=== PATIENT | male | born 2000 | race Caucasian/White ===

== ENCOUNTER 2019-05-01 13:21 | Emergency (ER) | payer OTHER ==
[~2019-05-01] VITALS: Ht 175.2 cm; Wt 122.7 kg
[2019-05-01] MEDS ORDERED: D-ME118S33 PO (13:50)
--- NOTE | 2019-05-01 13:50 | ED Cough/URI ---
General Chief Complaint: Cough/Cold/Flu Symptoms Stated Complaint: MIGRAINE;COUGH;CHEST CONGESTION Nursing Triage Note: COUGH CONGESTION SINCE TUESDAY. WITH BODY ACHES Sepsis Screen: No Definite Risk Source: patient Exam Limitations: no limitations History of Present Illness Date Seen by Provider: May 01, 2019 Time Seen by Provider: 13:49 Initial Comments To ER with cough, chest and nasal congestion, body aches, headache for 2 days. no fever. Timing/Duration: constant Severity/Quality: moderate Associated Symptoms: cough, muscle aches, nasal congestion, nasal drainage Allergies and Home Medications Allergies Coded Allergies: No Known Drug Allergies (Unverified , 05/01/19) Home Medications D-Methorphan Hb/P-Epd HCl/Bpm 118 Ml Syrup, 5 ML PO Q4H Prescribed by: MICHELA MCKEON on 05/01/19 1350 Patient Home Medication List Home Medication List Reviewed: Yes Review of Systems Review of Systems Constitutional: see HPI EENTM: see HPI Respiratory: see HPI, cough Cardiovascular: no symptoms reported Genitourinary: no symptoms reported Musculoskeletal: no symptoms reported Skin: no symptoms reported Psychiatric/Neurological: No Symptoms Reported Hematologic/Lymphatic: No Symptoms Reported Immunological/Allergic: no symptoms reported Past Lsmemjo-Ykofql-Zuedaz Hx Patient Social History Alcohol Use: Denies Use Recreational Drug Use: No Smoking Status: Current Everyday Smoker Recent Foreign Travel: No Contact w/Someone Who Travel: No Recent Infectious Disease Expo: No Past Medical History Surgeries: No Respiratory: No Cardiac: No Neurological: No Genitourinary: No Gastrointestinal: No Integumentary: No Physical Exam Vital Signs - First Documented 05/01/19 13:36 Temp 36.5 Pulse 97 Resp 18 B/P (MAP) 136/84 (101) Pulse Ox 98 Capillary Refill : Less Than 3 Seconds Height: '" Weight: lbs. oz. kg; 39.00 BMI Method: General Appearance: WD/WN, no apparent distress Eyes: Bilateral Eye Normal Inspection, Bilateral Eye PERRL, Bilateral Eye EOMI HEENT: PERRL/EOMI, normal ENT inspection, TMs normal, other (tonsillar enlargement without exudate) Neck: No lymphadenopathy (R), No lymphadenopathy (L) Respiratory: normal breath sounds, no respiratory distress, no accessory muscle use Cardiovascular: regular rate, rhythm, no murmur Gastrointestinal: normal bowel sounds, non tender, soft Neurologic/Psychiatric: alert, normal mood/affect, oriented x 3 Skin: normal color, warm/dry Progress/Results/Core Measures Suspected Sepsis Recent Fever Within 48 Hours: No Infection Criteria Present: None New/Unexplained Altered Menta: No Sepsis Screen: No Definite Risk SIRS Temperature: Pulse: 97 Respiratory Rate: 18 Blood Pressure 136 /84 Mean: 101 Results/Orders Micro Results Microbiology 05/01/19 Influenza Types A,B Antigen (ALICIA) - Final, Complete My Orders Orders - MICHELA MCKEON APRN Influenza A And B Antigens (05/01/19 13:39) Vital Signs/I&O 05/01/19 05/01/19 13:36 14:41 Temp 36.5 36.5 Pulse 97 97 Resp 18 18 B/P (MAP) 136/84 (101) 136/84 (101) Pulse Ox 98 98 Capillary Refill : Less Than 3 Seconds Blood Pressure Mean: 101 Departure Impression Primary Impression: Influenza-like symptoms Disposition: 01 HOME, SELF-CARE Condition: Stable Departure-Patient Inst. Decision time for Depature: 13:49 Referrals: NO,LOCAL PHYSICIAN (PCP) Primary Care Physician Patient Instructions: Viral Upper Respiratory Infection, Adult (DC) Add. Discharge Instructions: 1. Return to ER for any concerns 2. Medication as directed 3. All discharge instructions reviewed with patient and/or family. Voiced understanding. Scripts D-Methorphan Hb/P-Epd HCl/Bpm (Bromfed Dm Cough Syrup) 118 Ml Syrup 5 ML PO Q4H for 7 Days, #120 ML Prov: MICHELA MCKEON APRN 05/01/19 MICHELA MCKEON APRN May 01, 2019 13:50
[2019-05-01 14:41] VITALS: BP 136/84
== END 2019-05-01 14:41 | disposition home or self-care (01) ==
LOC: ER 13:23
DX: R09.89 Other specified symptoms and signs involving the circulatory and respiratory systems (principal); F17.200 Nicotine dependence, unspecified, uncomplicated
CPT/HCPCS: 87804

== ENCOUNTER 2019-06-11 12:36 | Emergency (ER) | payer OTHER ==
[~2019-06-11] VITALS: Ht 175 cm; Wt 127.8 kg
[~2019-06-11 12:36] MED LIST: D-ME118S33 PO
[2019-06-11 12:42] VITALS: BP 128/87
[2019-06-11] MEDS ORDERED: D-ME118S33 PO (12:47)
[2019-06-11] MEDS ORDERED: PRD20T PO (12:47)
--- NOTE | 2019-06-11 12:48 | ED Cough/URI ---
General Chief Complaint: Cough/Cold/Flu Symptoms Stated Complaint: COUGH;ABD PAIN;SNEEZING;PAIN WHILE BREATHING Nursing Triage Note: COUGH, HEADACHE, PAIN IN CHEST WITH COUGH THAT STARTED ON TUESDAY. Sepsis Screen: No Definite Risk Source: patient Exam Limitations: no limitations History of Present Illness Date Seen by Provider: Jun 11, 2019 Time Seen by Provider: 12:45 Initial Comments To ER with cough, pain with breathing, sneezing, headache cough is productive. Symptoms been present for 4-5 days. No travel in the past 3 weeks. No fevers at any time. Timing/Duration: constant Severity/Quality: moderate Associated Symptoms: cough, nasal congestion, nasal drainage Allergies and Home Medications Allergies Coded Allergies: No Known Drug Allergies (Unverified , 05/01/19) Home Medications D-Methorphan Hb/P-Epd HCl/Bpm 118 Ml Syrup, 5 ML PO Q4H PRN for COUGH Prescribed by: MICHELA MCKEON on 06/11/19 1248 Prednisone 20 Mg Tab, 40 MG PO DAILY Prescribed by: MICHELA MCKEON on 06/11/19 1247 Patient Home Medication List Home Medication List Reviewed: Yes Review of Systems Review of Systems Constitutional: see HPI; No chills EENTM: see HPI, nose congestion Respiratory: see HPI, cough Genitourinary: no symptoms reported Musculoskeletal: no symptoms reported Skin: no symptoms reported Psychiatric/Neurological: No Symptoms Reported Hematologic/Lymphatic: No Symptoms Reported Past Lwixizn-Kebrpj-Esilwa Hx Patient Social History Recent Foreign Travel: No Contact w/Someone Who Travel: No Recent Infectious Disease Expo: No Past Medical History Surgeries: No Respiratory: No Cardiac: No Neurological: No Genitourinary: No Gastrointestinal: No Integumentary: No Physical Exam Vital Signs - First Documented 06/11/19 12:42 Temp 37.2 Pulse 113 Resp 16 B/P (MAP) 128/87 (101) Pulse Ox 100 O2 Delivery Room Air Capillary Refill : Less Than 3 Seconds Height: '" Weight: lbs. oz. kg; 41.00 BMI Method: General Appearance: WD/WN, no apparent distress Eyes: Bilateral Eye Normal Inspection, Bilateral Eye PERRL, Bilateral Eye EOMI HEENT: PERRL/EOMI, normal ENT inspection, other (3+ tonsils without exudate) Neck: non-tender, full range of motion Respiratory: no respiratory distress, no accessory muscle use Cardiovascular: regular rate, rhythm, no murmur Gastrointestinal: normal bowel sounds, soft Neurologic/Psychiatric: alert, normal mood/affect, oriented x 3 Skin: normal color, warm/dry Progress/Results/Core Measures Suspected Sepsis Recent Fever Within 48 Hours: No Infection Criteria Present: Suspected New Infection New/Unexplained Altered Menta: No Sepsis Screen: No Definite Risk SIRS Temperature: Pulse: 113 Respiratory Rate: 16 Blood Pressure 128 /87 Mean: 101 Results/Orders My Orders Orders - MICHELA MCKEON APRN Chest Pa/Lat (2 View) (06/11/19 12:43) Vital Signs/I&O 06/11/19 12:42 Temp 37.2 Pulse 113 Resp 16 B/P (MAP) 128/87 (101) Pulse Ox 100 O2 Delivery Room Air Capillary Refill : Less Than 3 Seconds Blood Pressure Mean: 101 Departure Impression Primary Impression: Tonsillar hypertrophy Additional Impression: Bronchitis Disposition: 01 HOME, SELF-CARE Condition: Stable Departure-Patient Inst. Decision time for Depature: 12:46 Referrals: NO,LOCAL PHYSICIAN (PCP) Primary Care Physician Patient Instructions: Acute Bronchitis, Adult (DC) Add. Discharge Instructions: 1. Medication as directed 2. Return to ER for any concerns 3. Follow-up with your doctor this week for recheck. All discharge instructions reviewed with patient and/or family. Voiced understanding. Scripts Prednisone (Prednisone) 20 Mg Tab 40 MG PO DAILY, #6 TAB 0 Refills Prov: MICHELA MCKEON APRN 06/11/19 D-Methorphan Hb/P-Epd HCl/Bpm (Bromfed Dm Cough Syrup) 118 Ml Syrup 5 ML PO Q4H PRN for COUGH for 7 Days, #120 ML Prov: MICHELA MCKEON APRN 06/11/19 Work/School Note: Work Release Form Date Seen in the Emergency Department: Jun 11, 2019 Return to Work: Jun 14, 2019 MICHELA MCKEON APRN Jun 11, 2019 12:48
--- NOTE | 2019-06-11 13:07 | Diagnostic Imaging Report ---
INDICATION: Cough with chest pain. PA and lateral chest obtained at 1:05 p.m. Heart and mediastinal silhouette are normal in appearance. The lungs are clear. There is no pneumothorax or pleural fluid. IMPRESSION: Negative chest. Dictated by: Dictated on workstation # [id number]
--- NOTE | 2019-06-11 13:13 | NUR ---
MICHELA IN TALKING TO PT AT THIS TIME.
== END 2019-06-11 13:14 | disposition home or self-care (01) ==
LOC: EDUNIT# 12:36 → ER 12:38
DX: J35.1 Hypertrophy of tonsils (principal); J40 Bronchitis, not specified as acute or chronic
CPT/HCPCS: 71046

== ENCOUNTER 2019-07-02 17:36 | Emergency (ER) | payer OTHER ==
[~2019-07-02] VITALS: Ht 175.3 cm; Wt 108.9 kg
[~2019-07-02 17:36] MED LIST changes: +PRD20T PO
[2019-07-02] MEDS ORDERED: LACTATED RINGERS 1,000 ML IV ONE (17:43)
[2019-07-02 18:40] LABS: BASOPHILS # (AUTO) 0.1 10^3/uL (0.0-0.1); BASOPHILS % (AUTO) 1 % (0-10); EOSINOPHILS # (AUTO) 0.8 10^3/uL (0.0-0.3); EOSINOPHILS % (AUTO) 7 % (0-10); HEMATOCRIT 47 % (40-54); HEMOGLOBIN 16.4 G/DL (13.3-17.7); LYMPHOCYTES # (AUTO) 2.3 X 10^3 (1.0-4.0); LYMPHOCYTES % (AUTO) 23 % (12-44); MEAN CORPUSCULAR HEMOGLOBIN 30 PG (25-34); MEAN CORPUSCULAR HGB CONC 35 G/DL (32-36); MEAN CORPUSCULAR VOLUME 84 FL (80-99); MEAN PLATELET VOLUME 9.5 FL (7.4-10.4); MONOCYTES # (AUTO) 0.8 X 10^3 (0.0-1.0); MONOCYTES % (AUTO) 8 % (0-12); NEUTROPHILS # (AUTO) 6.3 X 10^3 (1.8-7.8); NEUTROPHILS % (AUTO) 62 % (42-75); PLATELET COUNT 254 10^3/uL (130-400); RED CELL DISTRIBUTION WIDTH 12.6 % (10.0-14.5); WHITE BLOOD COUNT 10.2 10^3/uL (4.3-11.0)
--- NOTE | 2019-07-02 18:45 | ED General ---
General Chief Complaint: Chest Pain Stated Complaint: CHEST PAIN Nursing Triage Note: Pt amb to [facility] with C/O cough, N/V/D, body aches, and chest discomfort. Pt reports he was seen in this ED for similar s/s on 06/22/19, where he was diagnosed with bronchitis. Pt reports continued symptoms despite completing prescribed medication. Pt reports upon rise on this day, body aches began. Pt reports medial, persistant chest discomfort for x1wk. Pt denies fever or chills. A&OX4. Nursing Sepsis Screen: No Definite Risk Source of Information: Patient Exam Limitations: No Limitations History of Present Illness Date Seen by Provider: Jul 02, 2019 Time Seen by Provider: 17:41 Initial Comments This 18-year-old young man presents to the emergency room with complaints of cough for 2 weeks. Over the past week he has also developed nausea, vomiting, diarrhea, chest discomfort and mild sore throat. Today he woke and had worsening symptoms including generalized myalgias. She was also seen in April and May 4 similar complaints. He continues to smoke despite his symptoms. Allergies and Home Medications Allergies Coded Allergies: No Known Drug Allergies (Unverified , 05/01/19) Home Medications D-Methorphan Hb/P-Epd HCl/Bpm 118 Ml Syrup, 5 ML PO Q4H PRN for COUGH Prescribed by: MICHELA MCKEON on 06/11/19 1248 Ondansetron 4 Mg Tab.rapdis, 4 MG SL Q4H PRN for NAUSEA/VOMITING Prescribed by: LOUEI JAIN on 07/02/19 1846 Prednisone 20 Mg Tab, 40 MG PO DAILY Prescribed by: MICHELA MCKEON on 06/11/19 1247 Patient Home Medication List Home Medication List Reviewed: Yes Review of Systems Review of Systems Constitutional: no symptoms reported EENTM: see HPI Respiratory: see HPI Cardiovascular: no symptoms reported Gastrointestinal: see HPI Genitourinary: no symptoms reported Musculoskeletal: see HPI Skin: no symptoms reported Psychiatric/Neurological: No Symptoms Reported Hematologic/Lymphatic: No Symptoms Reported Immunological/Allergic: no symptoms reported Past Tiiernt-Pprepe-Qjqyez Hx Past Med/Social Hx: Reviewed Nursing Past Med/Soc Hx Patient Social History Alcohol Use: Denies Use Recreational Drug Use: No Smoking Status: Current Everyday Smoker Type Used: Cigarettes 2nd Hand Smoke Exposure: Yes Recent Foreign Travel: No Contact w/Someone Who Travel: No Recent Infectious Disease Expo: No Past Medical History Surgeries: No Respiratory: No Cardiac: No Neurological: No Genitourinary: No Gastrointestinal: No Musculoskeletal: No Endocrine: No HEENT: No Cancer: No Psychosocial: No Integumentary: No Physical Exam Vital Signs Vital Signs - First Documented 07/02/19 17:36 Temp 36.7 Pulse 103 Resp 18 B/P (MAP) 143/89 (107) Pulse Ox 98 O2 Delivery Room Air Capillary Refill : Less Than 3 Seconds Height, Weight, BMI Height: '" Weight: lbs. oz. kg; 35.00 BMI Method: General Appearance: No Apparent Distress, WD/WN HEENT: PERRL/EOMI, TMs Normal, Normal ENT Inspection, Pharynx Normal Neck: Normal Inspection Respiratory: Lungs Clear, Normal Breath Sounds, No Accessory Muscle Use, No Respiratory Distress Cardiovascular: Regular Rate, Rhythm, No Edema, No Murmur Gastrointestinal: Normal Bowel Sounds, Non Tender, Soft Extremity: Normal Inspection, No Pedal Edema Neurologic/Psychiatric: Alert, Oriented x3, No Motor/Sensory Deficits, Normal Mood/Affect, cement patcher II-XII Norm as Tested Skin: Normal Color, Warm/Dry Progress/Results/Core Measures Suspected Sepsis Recent Fever Within 48 Hours: No Infection Criteria Present: Suspected New Infection New/Unexplained Altered Menta: No Sepsis Screen: No Definite Risk SIRS Temperature: Pulse: 103 Respiratory Rate: 18 Laboratory Tests 07/02/19 17:54: White Blood Count 10.2 Blood Pressure 143 /89 Mean: 107 Laboratory Tests 07/02/19 17:54: Creatinine 0.99, Platelet Count 254, Total Bilirubin 0.3 Results/Orders Lab Results Laboratory Tests Test 07/02/19 17:54 07/02/19 18:00 Range/Units White Blood Count 10.2 4.3-11.0 10^3/uL Red Blood Count 5.55 4.35-5.85 10^6/uL Hemoglobin 16.4 13.3-17.7 G/DL Hematocrit 47 40-54 % Mean Corpuscular Volume 84 80-99 FL Mean Corpuscular Hemoglobin 30 25-34 PG Mean Corpuscular Hemoglobin Concent 35 32-36 G/DL Red Cell Distribution Width 12.6 10.0-14.5 % Platelet Count 254 130-400 10^3/uL Mean Platelet Volume 9.5 7.4-10.4 FL Neutrophils (%) (Auto) 62 42-75 % Lymphocytes (%) (Auto) 23 12-44 % Monocytes (%) (Auto) 8 0-12 % Eosinophils (%) (Auto) 7 0-10 % Basophils (%) (Auto) 1 0-10 % Neutrophils # (Auto) 6.3 1.8-7.8 X 10^3 Lymphocytes # (Auto) 2.3 1.0-4.0 X 10^3 Monocytes # (Auto) 0.8 0.0-1.0 X 10^3 Eosinophils # (Auto) 0.8 H 0.0-0.3 10^3/uL Basophils # (Auto) 0.1 0.0-0.1 10^3/uL Erythrocyte Sedimentation Rate 2 0-15 MM/HR D-Dimer > 0.27 0.00-0.49 UG/ML Sodium Level 138 135-145 MMOL/L Potassium Level 3.8 3.6-5.0 MMOL/L Chloride Level 104 98-107 MMOL/L Carbon Dioxide Level 24 21-32 MMOL/L Anion Gap 10 5-14 MMOL/L Blood Urea Nitrogen 12 7-18 MG/DL Creatinine 0.99 0.60-1.30 MG/DL Estimat Glomerular Filtration Rate > 60 BUN/Creatinine Ratio 12 Glucose Level 107 H 70-105 MG/DL Calcium Level 9.5 8.5-10.1 MG/DL Corrected Calcium 8.5-10.1 MG/DL Total Bilirubin 0.3 0.1-1.0 MG/DL Aspartate Amino Transf (AST/SGOT) 29 5-34 U/L Alanine Aminotransferase (ALT/SGPT) 72 H 0-55 U/L Alkaline Phosphatase 79 40-136 U/L Lactate Dehydrogenase 168 125-220 U/L C-Reactive Protein High Sensitivity 0.52 H 0.00-0.50 MG/DL Total Protein 7.3 6.4-8.2 GM/DL Albumin 4.6 H 3.2-4.5 GM/DL Group A Streptococcus Screen NEGATIVE NEGATIVE Micro Results Microbiology 07/02/19 Influenza Types A,B Antigen (ALICIA) - Final, Complete My Orders Orders - LOUIE MCKINNEY MD Cbc With Automated Diff (07/02/19 17:43) Comprehensive Metabolic Panel (07/02/19 17:43) Ferritin (07/02/19 17:43) Fibrin Degradation Products (07/02/19 17:43) Hs C Reactive Protein (07/02/19 17:43) Erythrocyte Sedimentation Rate (07/02/19 17:43) LDH (07/02/19 17:43) Influenza A And B Antigens (07/02/19 17:43) Rapid Strep A Screen (07/02/19 17:43) Chest 1 View, Ap/Pa Only (07/02/19 17:43) Ed Iv/Invasive Line Start (07/02/19 17:43) Lactated Ringers (Lr 1000 Ml Iv Solution (07/02/19 17:43) Medications Given in ED Vital Signs/I&O Capillary Refill : Less Than 3 Seconds Blood Pressure Mean: 107 Progress Note : Progress Note Workup was unremarkable. Patient was infused with a liter of LR. He did not meet screening criteria for COVID-19. He was discharged with a prescription for Zofran. He was encouraged to quit smoking. Diagnostic Imaging Diagonstic Imaging: Xray Plain Films/CT/US/NM/MRI: chest Comments Chest x-ray viewed by me and report reviewed. See report below: NAME: CHANTELLE [facility] REC#: [id number] PT STATUS: DEP ER : 2000 PHYSICIAN: LOUIE MCKINNEY MD ADMIT DATE: 07/02/19/ER Signed Date of Exam:07/02/19 CHEST 1 VIEW, AP/PA ONLY INDICATION: Chest pain. Shortness of breath. Nausea. Comparison with 06/11/2019 chest. FINDINGS: Portable exam. The lungs are well-aerated without air-trapping. There are no infiltrates. The heart is not enlarged. No pulmonary edema. No pneumothorax or pleural effusion. No bony abnormalities. IMPRESSION: Normal portable chest. Dictated by: Dictated on workstation # [id number] Dict: 07/02/19 1854 Trans: 07/02/191949 BEST [id number] Interpreted by: NATY NIELSEN MD Electronically signed by: NATY NIELSEN MD 07/02/191949 Departure Impression Primary Impression: Nausea vomiting and diarrhea Additional Impressions: Atypical chest pain Cough Myalgia Disposition: 01 HOME, SELF-CARE Condition: Improved Departure-Patient Inst. Decision time for Depature: 18:43 Referrals: NO,LOCAL PHYSICIAN (PCP/Family) Primary Care Physician Patient Instructions: Diarrhea in Adolescents and Adults, Nausea and Vomiting, Adult Add. Discharge Instructions: Drink plenty of clear liquids. Gradually advance your diet with small quantities of bland food as tolerated. Avoid dairy products or fatty or greasy foods for at least 48 hours after diarrhea resolves. You may use Tylenol (acetaminophen) for aches and pains. Uses Zofran (ondansetron) as prescribed for nausea and vomiting. Please quit smoking as soon as possible as smoking is likely contributing to your symptoms and will certainly worsen symptoms of acute respiratory illness. Return to care if you have worsening symptoms. Follow-up with your primary care provider within the next 1-2 weeks. All discharge instructions reviewed with patient and/or family. Voiced understa nding. Scripts Ondansetron (Ondansetron Odt) 4 Mg Tab.rapdis 4 MG SL Q4H PRN for NAUSEA/VOMITING, #10 TAB Prov: LOUIE MCKINNEY MD 07/02/19 LOUIE MCKINNEY MD Jul 02, 2019 18:45
[2019-07-02] MEDS ORDERED: ONDA4TAB11 SL (18:46)
--- NOTE | 2019-07-02 18:59 | Diagnostic Imaging Report ---
INDICATION: Chest pain. Shortness of breath. Nausea. Comparison with 06/11/2019 chest. FINDINGS: Portable exam. The lungs are well-aerated without air-trapping. There are no infiltrates. The heart is not enlarged. No pulmonary edema. No pneumothorax or pleural effusion. No bony abnormalities. IMPRESSION: Normal portable chest. Dictated by: Dictated on workstation # [id number]
[2019-07-02 19:00] LABS: ALANINE AMINOTRANSFERASE 72 U/L (0-55); ALBUMIN 4.6 GM/DL (3.2-4.5); ALKALINE PHOSPHATASE 79 U/L (40-136); BILIRUBIN,TOTAL 0.3 MG/DL (0.1-1.0); BUN/CREATININE RATIO 12; CALCIUM 9.5 MG/DL (8.5-10.1); CARBON DIOXIDE 24 MMOL/L (21-32); CHLORIDE 104 MMOL/L (98-107); CREATININE SERUM 0.99 MG/DL (0.60-1.30); GFR ESTIMATED > 60; GLUCOSE 107 MG/DL (70-105); POTASSIUM 3.8 MMOL/L (3.6-5.0); SODIUM 138 MMOL/L (135-145); TOTAL PROTEIN 7.3 GM/DL (6.4-8.2)
[2019-07-02 19:20] LABS: ERYTHROCYTE SEDIMENTATION RATE 2 MM/HR (0-15)
[2019-07-02 19:22] VITALS: BP 119/86
== END 2019-07-02 19:22 | disposition home or self-care (01) ==
LOC: EDUNIT# 17:36 → ER 17:37
DX: R11.2 Nausea with vomiting, unspecified (principal); R19.7 Diarrhea, unspecified; R07.89 Other chest pain; R05 Cough; M79.18 Myalgia, other site; F17.210 Nicotine dependence, cigarettes, uncomplicated
CPT/HCPCS: 36415; 71045; 80053; 82728; 83615; 85025; 85379; 85652; 86141; 87430; 87804